=== PATIENT | female | born 1990 | race Caucasian/White ===

== ENCOUNTER → 2021-10-01 | Outpatient (CLI) | payer BC | LOC: CARD 13:30 | PROVIDERS: ATTEND Internal Medicine Cardiovascular Disease | DX: I51.7 Cardiomegaly (principal); I49.1 Atrial premature depolarization | CPT/HCPCS: 93225; 93226; 93306 ==

== ENCOUNTER 2022-07-21 06:35 | Inpatient (IN) | payer BC ==
[2022-07-21] VITALS (43 sets, daily range): BP systolic 74–154; BP diastolic 44–81
[~2022-07-21] VITALS: Ht 162.6 cm; Wt 78.2 kg
[2022-07-21] MEDS ORDERED: MINERAL OIL 30 ML UDC TOP PRN (06:45)
[2022-07-21] MEDS ORDERED: PREN-172 PO (07:18)
[2022-07-21] MEDS: D5 LR IV SOLUTION 1,000 ML IV SCH ×2 (07:22→11:23)
[2022-07-21 07:31] LABS: BASOPHILS % (AUTO) 0 % (0-10); EOSINOPHILS # (AUTO) 0.2 10^3/uL (0.0-0.3); EOSINOPHILS % (AUTO) 2 % (0-10); HEMATOCRIT 33 % (35-52); HEMOGLOBIN 11.1 g/dL (11.5-16.0); LYMPHOCYTES # (AUTO) 1.6 10^3/uL (1.0-4.0); LYMPHOCYTES % (AUTO) 15 % (12-44); MEAN CORPUSCULAR HEMOGLOBIN 30 pg (25-34); MEAN CORPUSCULAR HGB CONC 34 g/dL (32-36); MEAN CORPUSCULAR VOLUME 88 fL (80-99); MEAN PLATELET VOLUME 11.8 fL (9.0-12.2); MONOCYTES # (AUTO) 0.6 10^3/uL (0.0-1.0); MONOCYTES % (AUTO) 6 % (0-12); NEUTROPHILS # (AUTO) 8.3 10^3/uL (1.8-7.8); NEUTROPHILS % (AUTO) 77 % (42-75); PLATELET COUNT 183 10^3/uL (130-400); WHITE BLOOD COUNT 10.8 10^3/uL (4.3-11.0)
[2022-07-21] MEDS ORDERED: OXYTOCIN PRE-MIX DRIP 500 ML IV ONE (10:10)
[2022-07-21] MEDS ORDERED: fentaNYL 2 mcg/ml BUPIVA 0.125 100 ML ONE (10:10)
[2022-07-21] MEDS ORDERED: fentaNYL INJ 100 MCG/2 ML AMP ONE (10:12)
[2022-07-21] MEDS ORDERED: BUPIVACAINE 0.25% 10 ML (SENSORCAINE) VIAL ONE (10:12)
[2022-07-21] MEDS ORDERED: fentaNYL 2 mcg/ml BUPIVA 0.125 100 ML IV SCH (10:15)
[2022-07-21] MEDS ORDERED: diphenhydrAMINE 50 MG/ML INJ (BENADRYL) IV PRN (10:15)
[2022-07-21] MEDS ORDERED: ONDANSETRON 4 MG/2 ML (SDV) Z0FRAN IV PRN (10:15)
[2022-07-21] MEDS ORDERED: NALOXONE 0.4 MG/ML 1 ML (NARCAN) VIAL IV PRN (10:15)
[2022-07-21] MEDS ORDERED: LACTATED RINGERS 1,000 ML IV ONE (10:15)
[2022-07-21] MEDS ORDERED: CATHETER FLUSH 10 ML SYR IV PRN (10:15)
[2022-07-21] MEDS ORDERED: OXYTOCIN PRE-MIX DRIP 500 ML IV SCH (10:30)
[2022-07-21] MEDS ORDERED: CATHETER FLUSH 10 ML SYR IV SCH ×2 (14:00→22:00)
[2022-07-21] MEDS: OXYTOCIN PRE-MIX DRIP 500 ML IV SCH ×2 (15:10→15:47)
--- NOTE | 2022-07-21 15:29 | History & Physical-OB ---
OB - Chief Complaint & HPI Date/Time Date of Admission: Date of Admission: Jul 21, 2022 at 06:35 Date seen by a Provider: Jul 21, 2022 Time Seen by a Provider: 08:45 Chief Complaint/History OB-Reason for Admission/Chief: Induction of Labor Hx : 4 Hx Para: 3 Gestational Age in Weeks: 39 Gestational Age in Days: 2 Indication for induction: maternal distance, history of rapid labor History of Labs A+, Ab neg Rub Imm HIV/RPR/HepB/C NR GBS neg Allergies and Home Medications Allergies Coded Allergies: No Known Drug Allergies (Unverified , 07/21/22) Patient Home Medication List Home Medication List Reviewed: Yes Vit No.179/Iron/Folic ( Tablet) 28 Mg Iron-800 Mcg Tablet, 1 EACH PO, (Reported) Entered as Reported by: KORTNEY DIAZ on 07/21/22717 Last Action: New Order OB - History Hx of Present Care: Yes Ultrasounds: Normal mid trimester US Obstetrical Complications: None Medical Complications: None Information Induced Hypertension: No Maternal Gestational Diabetes: No Hemorrhage: No Obstetrical History Hx : 4 Hx Para: 3 Hx # Term Pregnancies: 3 Number of Living Children: 3 Patient Past Medical History None Social History/Family History Alcohol Use: Denies Use Recreational Drug Use: No Smoking Cessation: Never smoker Immunizations Influenza Vaccine Up-to-Date: No; Not Current Tetanus Booster (TDap): Less than 5yrs (05/14/23) Rubella: immune RPR/VDRL: Negative GBS Status: Negative HBsAG: Negative OB - Admission Exam Physical Exam Vitals: Vital Signs 07/21/22 07/21/22 10:40 12:45 Temp 36.5 Pulse 81 Resp 18 B/P (MAP) 107/72 (84) Pulse Ox 98 O2 Delivery Room Air HEENT: NCAT Heart: Rhythm Normal Lungs: Clear Abdomen: Gravid Cervical Dilatation: 3cm Effacement: 75% Station: 0 Membranes: Intact Heart Rate: 140's Accelerations: Accelerations Present Decelerations: No Decelerations Short Term Variability: Present Formula Maker Variability: Average (6-25) Contractions on Admission: >10 Minutes Apart Sprague Scoring Tool (Modified) Dilation (cm): 3-4cm (2) Effacement (%): 51-79% (2) Descent/Station: -1,0 (2) Cervix Consistency: Medium(1) Cervix Position: Middle/Mid-Position (1) Add 1 point for: Each previous vaginal delivery (1) Sprague Score: 9 Labs Laboratory Tests Test 07/21/22 07:18 Range/Units White Blood Count 10.8 4.3-11.0 10^3/uL Red Blood Count 3.70 L 3.80-5.11 10^6/uL Hemoglobin 11.1 L 11.5-16.0 g/dL Hematocrit 33 L 35-52 % Mean Corpuscular Volume 88 80-99 fL Mean Corpuscular Hemoglobin 30 25-34 pg Mean Corpuscular Hemoglobin Concent 34 32-36 g/dL Red Cell Distribution Width 12.4 10.0-14.5 % Platelet Count 183 130-400 10^3/uL Mean Platelet Volume 11.8 9.0-12.2 fL Immature Granulocyte % (Auto) 1 % Neutrophils (%) (Auto) 77 H 42-75 % Lymphocytes (%) (Auto) 15 12-44 % Monocytes (%) (Auto) 6 0-12 % Eosinophils (%) (Auto) 2 0-10 % Basophils (%) (Auto) 0 0-10 % Neutrophils # (Auto) 8.3 H 1.8-7.8 10^3/uL Lymphocytes # (Auto) 1.6 1.0-4.0 10^3/uL Monocytes # (Auto) 0.6 0.0-1.0 10^3/uL Eosinophils # (Auto) 0.2 0.0-0.3 10^3/uL Basophils # (Auto) 0.0 0.0-0.1 10^3/uL Immature Granulocyte # (Auto) 0.1 0.0-0.1 10^3/uL OB - Assessment/Plan/Diagnosis Assessment Assessment: induction of labor Admission Dx Third Trimester 39 week gestation Admission Status: Inpatient Order (span 2 midnights) Reason for Inpatient Admission: Labor and post care Plan Other Plan 32 yo @ 39.2 wga here for IOL Plan - AROM this AM 0900 clear - Plan for epidural at patient's request - GBS neg - Expectant management Copy Copies To 1: BARBY BRICENO MD, HOLLY R MD Jul 21, 2022 15:29
[2022-07-21] MEDS ORDERED: IBUPROFEN 600 MG (MOTRIN) TAB PO SCH (15:30)
[2022-07-21] MEDS ORDERED: BENZOCAINE/MENTHOL (DERMOPLAST) 56 ML CAN TP PRN (15:30)
[2022-07-21] MEDS ORDERED: ACETAMINOPHEN 500 MG TAB (TYLENOL) PO SCH (15:30)
[2022-07-21] MEDS ORDERED: WITCH HAZEL(TUCKS) 40 EA JAR TOP PRN (15:30)
--- NOTE | 2022-07-21 15:36 | OB Labor & Delivery Record ---
Vag Delivery Note Vag Delivery Note Date of Delivery: 07/21/22 Preoperative Diagnosis: Greta Tan is a (32 /Para 4 / 3,Gestational Age (wks)39.2 here for elective IOL Postoperative Diagnosis: Same Surgeon: BARBY BRICENO MD Wet Plant Operator: Charlene Singer MS4 Anesthesia: Epidural Delivery Type: @ 1505 Findings: Viable male , apgars 8/9, weight 7#2, 3230 grams Lacerations: skin tear Intact placenta with 3 vessel cord. No nuchal cord, body cord or shoulder dystocia Estimated Blood Loss: 100 ml Complications: None Condition: Stable Description of Procedure: The patient is a 32 year old female who presented for elective IOL. She was admitted and informed consent was obtained. Her labor course was uncomplicated. She progressed to complete dilatation and began to push. She was then set up for delivery. The 's head was delivered atraumatically in the WAGNER position. The shoulders and remainder of the 's body were then delivered without difficulty. Upon delivery, the was vigorous and placed on maternal chest and the mouth and nares were bulb suctioned. After a 3 min delay cord was doubly clamped and cut by FOB and the infant remained on maternal chest and was attended to by nursery nurse. An intact placenta with 3-vessel cord delivered via Mateusz and there was found to be minimal bleeding.~ Vigorous fundal massage was performed and the fundus was found to be firm. IV oxytocin was given. Examination of the vagina and perineum revealed no lacerations that require repair. Following the repair, sponge, instrument and needle counts were correct. Mom and baby were both in stable condition in the labor suite. Vitals - Labs Vital Signs - I&O Vital Signs Date Time Temp Pulse Resp B/P (MAP) Pulse Ox O2 Delivery O2 Flow Rate FiO2 07/21/22 12:45 81 18 107/72 (84) 98 Room Air 07/21/22 12:30 107 18 110/74 (86) 98 Room Air 07/21/22 12:15 121 18 126/78 (94) 99 Room Air 07/21/22 12:00 107 18 111/73 (86) 98 Room Air 07/21/22 11:45 80 18 115/77 (90) 99 Room Air 07/21/22 11:30 74 18 121/81 (94) 98 Room Air 07/21/22 11:15 99 18 115/74 (88) 99 Room Air 07/21/22 11:00 91 18 114/76 (89) 97 07/21/22 10:55 98 18 106/69 (81) 99 Room Air 07/21/22 10:50 90 18 100/60 (73) 99 Room Air 07/21/22 10:46 80 95/51 (66) Room Air 07/21/22 10:44 75 18 74/44 (54) 99 Room Air 07/21/22 10:42 86 97/62 (74) Room Air 07/21/22 10:40 36.5 97 18 114/75 (88) 96 Room Air 07/21/22 10:35 76 18 130/80 (97) 98 Room Air 07/21/22 10:30 68 18 133/77 (95) 98 Room Air 07/21/22 10:25 71 18 154/74 (100) 98 Room Air 07/21/22 10:20 87 18 123/78 (93) 98 Room Air 07/21/22 10:00 75 18 119/78 (92) Room Air 07/21/22 09:30 68 18 124/76 (92) Room Air 07/21/22 09:00 68 18 124/76 (92) Room Air 07/21/22 08:30 72 18 124/81 (95) Room Air 07/21/22 07:22 37.0 78 18 98 Room Air 07/21/22 07:20 37.0 77 18 141/76 (97) 98 Room Air Labs Laboratory Tests 07/21/22 07:18: White Blood Count 10.8, Red Blood Count 3.70L, Hemoglobin 11.1L, Hematocrit 33L, Mean Corpuscular Volume 88, Mean Corpuscular Hemoglobin 30, Mean Corpuscular Hemoglobin Concent 34, Red Cell Distribution Width 12.4, Platelet Count 183, Mean Platelet Volume 11.8, Immature Granulocyte % (Auto) 1, Neutrophils (%) (Auto) 77H, Lymphocytes (%) (Auto) 15, Monocytes (%) (Auto) 6, Eosinophils (%) (Auto) 2, Basophils (%) (Auto) 0, Neutrophils # (Auto) 8.3H, Lymphocytes # (Auto) 1.6, Monocytes # (Auto) 0.6, Eosinophils # (Auto) 0.2, Basophils # (Auto) 0.0, Immature Granulocyte # (Auto) 0.1 BARBY BRICENO MD Jul 21, 2022 15:36
[2022-07-21] MEDS ORDERED: LIDOCAINE 1% INJ 20 ML VIAL IJ PRN (16:00)
[2022-07-21] MEDS: DOCUSATE SODIUM 100 MG (COLACE) CAP PO SCH (21:28)
[2022-07-21] MEDS: ACETAMINOPHEN 500 MG TAB (TYLENOL) PO SCH (23:06)
[2022-07-21] MEDS: IBUPROFEN 600 MG (MOTRIN) TAB PO SCH (23:06)
[2022-07-22] MEDS: IBUPROFEN 600 MG (MOTRIN) TAB PO SCH ×2 (04:52→11:04)
[2022-07-22] MEDS: ACETAMINOPHEN 500 MG TAB (TYLENOL) PO SCH ×2 (04:52→11:05)
[2022-07-22 05:00] VITALS: BP 125/72
[2022-07-22 05:15] LABS: BASOPHILS % (AUTO) 0 % (0-10); EOSINOPHILS # (AUTO) 0.2 10^3/uL (0.0-0.3); EOSINOPHILS % (AUTO) 2 % (0-10); HEMATOCRIT 28 % (35-52); HEMOGLOBIN 9.3 g/dL (11.5-16.0); LYMPHOCYTES # (AUTO) 1.9 10^3/uL (1.0-4.0); LYMPHOCYTES % (AUTO) 16 % (12-44); MEAN CORPUSCULAR HEMOGLOBIN 30 pg (25-34); MEAN CORPUSCULAR HGB CONC 33 g/dL (32-36); MEAN CORPUSCULAR VOLUME 90 fL (80-99); MEAN PLATELET VOLUME 11.4 fL (9.0-12.2); MONOCYTES # (AUTO) 0.7 10^3/uL (0.0-1.0); MONOCYTES % (AUTO) 6 % (0-12); NEUTROPHILS # (AUTO) 8.8 10^3/uL (1.8-7.8); NEUTROPHILS % (AUTO) 75 % (42-75); PLATELET COUNT 146 10^3/uL (130-400); WHITE BLOOD COUNT 11.7 10^3/uL (4.3-11.0)
[2022-07-22] MEDS: DOCUSATE SODIUM 100 MG (COLACE) CAP PO SCH (08:35)
[2022-07-22 08:36] VITALS: BP 130/78
--- NOTE | 2022-07-22 10:30 | Discharge Summary ---
Diagnosis/Chief Complaint Date of Admission Jul 21, 2022 at 06:35 Date of Discharge 07/22/2022 Admission Diagnosis Admission Diagnosis Third Trimester 39 week gestation Discharge Diagnosis Term Uncomplicated 39 completed weeks gestation Anemia of acute blood loss Chief Complaint/HPI Chief Complaint/HPI 32 yo G4 Now P4 mother delivered term male via uncomplicated @ 39 weeks gestation Discharge Summary-Simple/Stand Procedures Epidural placement Discharge Physical Examination Allergies: Coded Allergies: No Known Drug Allergies (Unverified , 07/21/22) Vitals & I&Os Vital Sign - Last 12Hours Date Time Temp Pulse Resp B/P (MAP) Pulse Ox O2 Delivery O2 Flow Rate FiO2 07/22/22 08:36 37.0 77 18 130/78 (95) 98 Room Air Intake and Output 07/22/22 00:00 Intake Total 1560 ml Balance 1560 ml General Appearance: Alert, Oriented X3, Cooperative, No Acute Distress Respiratory: Clear to Auscultation, Normal Air Movement Cardiovascular: Regular Rate, No Murmurs Abdominal: Normal Bowel Sounds, Soft, No Tenderness, Other (Fundus firm and below umbilicus) Extremities: Other (trace edema LE bilaterally) Neuro: Normal Speech Psych/Mental Status: Mental Status NL, Mood NL Hospital Course See final discharge diagnosis. Discharge Condition at discharge Stable Instructions to patient/family Please see electronic discharge instructions given to patient. Discharge Medications Reviewed and agree with Discharge Medication list on patient's Discharge Instruction sheet Copy Copies To 1: BARBY BRICENO MD, HOLLY R MD Jul 22, 2022 10:30
[2022-07-22] MEDS ORDERED: DOCU100C37 PO (10:31)
[2022-07-22] MEDS ORDERED: IBUP-844 PO (10:31)
--- NOTE | 2022-07-22 10:32 | Discharge Summary ---
Discharge Inst-[facility] Reconcile Patient Problems Problems Reviewed?: Yes Depart Medications New, Converted or Re-Newed RX: Transmitted to Pharmacy New Medications: Docusate Sodium (Docusate Sodium) 100 Mg Capsule 100 MG PO BID, #28 CAP Ibuprofen (Ibu) 600 Mg Tablet 600 MG PO Q6H, #60 TAB Continued Medications: Vit No.179/Iron/Folic ( Tablet) 28 Mg Iron-800 Mcg Tablet 1 EACH PO, TAB Follow Up/Instructions Goal/Follow Up: 6 weeks with Hal Activity Activity: Activity as Tolerated Driving Instructions: You May Drive NO SMOKING: NO SMOKING Nothing Inside Vagina: No Douching, No [place], No Tampons Diet Discharge Diet: No Restrictions Symptoms to Report to : Bleeding Excessive, Fever Over 101 Degrees F, Shortness of Breath BARBY BRICENO MD Jul 22, 2022 10:32
[2022-07-22 13:00] VITALS: BP 111/55
== END 2022-07-22 17:35 | disposition home or self-care (01) | DRG 806 ==
LOC: LDRP 06:35
PROVIDERS: ADMIT Family Medicine; ATTEND Family Medicine
PROC: 10E0XZZ Delivery of Products of Conception, External Approach (ICD-10-PCS; principal; 2022-07-21)
PROC: 10907ZC Drainage of Amniotic Fluid, Therapeutic from Products of Conception, Via Natural or Artificial Opening (ICD-10-PCS; 2022-07-21)
DX: O71.89 Other specified obstetric trauma (principal); D62 Acute posthemorrhagic anemia; Z37.0 Single live birth; O90.81 Anemia of the puerperium; Z3A.39 39 weeks gestation of pregnancy
CPT/HCPCS: 36415; 85025; 86780; 86850; 86900; 86901